=== PATIENT | female | born 1980 | race Caucasian/White ===

== ENCOUNTER 2024-08-25 09:20 | Emergency (ER) | payer OTHER ==
[2024-08-25] MEDS: SODIUM CHLORIDE 0.9% 1,000 ML IV STA (10:28)
[2024-08-25 10:37] LABS: Basophils % (A) 1 %; Eosinophils # (A) 0.1 k/uL (0-0.7); Eosinophils % (A) 2 %; HCT 37.8 % (34.0-46.0); HGB 13.1 gm/dL (11.4-16.0); Lymphocytes # (A) 1.6 k/uL (1.0-4.8); Lymphocytes % (A) 29 %; MCH 30.7 pg (25.0-35.0); MCHC 34.6 g/dL (31.0-37.0); MCV 88.8 fL (80.0-100.0); Mean Platelet Volume 6.5; Monocytes # (A) 0.5 k/uL (0-1.0); Monocytes % (A) 8 %; Neutrophils # (A) 3.2 k/uL (1.3-7.7); Neutrophils % (A) 57 %; Platelet Count 222 k/uL (150-450); RBC 4.25 m/uL (3.80-5.40); RDW 12.5 % (11.5-15.5); WBC 5.6 k/uL (3.8-10.6)
[2024-08-25 10:46] LABS: ALT 27 U/L (4-34); AST 33 U/L (14-36); African American GFR (CKD) >90 (>60 ml/min/1.73 sqM); Albumin 4.5 g/dL (3.5-5.0); Alkaline Phosphatase 66 U/L (38-126); Amylase 35 U/L (30-110); Anion Gap 7 mmol/L; Blood Urea Nitrogen 16 mg/dL (7-17); Calcium 9.6 mg/dL (8.4-10.2); Carbon Dioxide 27 mmol/L (22-30); Chloride 101 mmol/L (98-107); Glucose 87 mg/dL (74-99); Lipase 45 U/L (23-300); Non-African American GFR(CKD) >90 (>60 ml/min/1.73 sqM); Potassium 4.1 mmol/L (3.5-5.1); Sodium 135 mmol/L (137-145); Total Bilirubin 0.8 mg/dL (0.2-1.3); Total Protein 6.9 g/dL (6.3-8.2)
[2024-08-25 10:55] LABS: INR 0.9 (<1.2); Partial Thromboplastin Time 25.6 sec (22.0-30.0); Prothrombin Time 10.3 sec (10.0-12.5)
[2024-08-25 11:03] LABS: Appearance,Urine Clear (Clear); Bilirubin,Urine Negative (Negative); Blood,Urine Negative (Negative); Color,Urine Yellow; Glucose,Urine (UA) Negative (Negative); Ketones,Urine Negative (Negative); Leukocyte Esterase,Urine Trace (Negative); Mucus,Urine Occasional /hpf; Nitrite,Urine Negative (Negative); PH, Urine 5.5 (5.0-8.0); Protein,Urine Trace (Negative); RBC,Urine <1 /hpf (0-5); Specific Gravity,Urine 1.033 (1.001-1.035); Squamous Epithelial Cell,Urine 3 /hpf (0-4); Urobilinogen,Urine <2.0 mg/dL (<2.0); WBC,Urine 2 /hpf (0-5)
[2024-08-25 11:04] LABS: Amphetamine Screen,Urine Detected (NotDetected); Barbiturate Screen,Urine Not Detected (NotDetected); Benzodiazepines Screen,Urine Not Detected (NotDetected); Cocaine Screen,Urine Not Detected (NotDetected); Methadone Screen, Urine Not Detected (NotDetected); Opiate Screen,Urine Not Detected (NotDetected); Oxycodone Screen, Urine Not Detected (NotDetected); Phencyclidine Screen,Urine Not Detected (NotDetected); Tricyclic Antidepressant,Urine Detected (NotDetected); Urn Cannabinoid Scrn Detected (NotDetected)
[2024-08-25 11:36] VITALS: TEMP 97.6
--- NOTE | 2024-08-25 11:42 | ED ---
General Adult HPI - General Chief complaint: Abdominal Pain Stated complaint: Parasite Time Seen by Provider: 08/25/24 09:58 Source: patient, RN notes reviewed, old records reviewed Mode of arrival: ambulatory Limitations: no limitations - History of Present Illness Initial comments: Is a 44-year-old female presents to the emergency department for what was originally seen in triage as abdominal pain however is actually evaluation for rashes as well as possible worms. 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 Has not been on any medications. Reiterates that she sees worms crawling out of her skin, out of her fingers, she is cut into her skin and is noticed that when she Dems peroxide on it she sees white worms come out. Concern for possible eggs. Does have some bites that do appear similar to scabies which she was diagnosed with previously and ran out of her permethrin ointment. Denies any significant abdominal pain, nausea, vomiting, diarrhea. Denies any other acute complaints. Presents for reevaluation at this time.Patient states she was wiping her body off with wipes and saw the worms on the wipes and brought them in baggies to the emergency department for me to evaluate. - Related Data Home Medications Medication Instructions Recorded Confirmed Cyclobenzaprine [Flexeril] 10 mg PO TID 08/25/24 08/25/24 Gabapentin 800 mg PO TID 08/25/24 08/25/24 Nortriptyline HCl [Pamelor] 50 mg PO HS 08/25/24 08/25/24 Omeprazole 40 mg PO DAILY 08/25/24 08/25/24 Previous Rx's Medication Instructions Recorded Permethrin 1 applic TOPICAL BID #60 gm 08/25/24 Allergies Allergy/AdvReac Type Severity Reaction Status Date / Time acetaminophen [From Tylenol] AdvReac Nausea & Verified 08/25/24 10:26 Vomiting ibuprofen AdvReac Nausea & Verified 08/25/24 10:26 Vomiting Review of Systems ROS Statement: Those systems with pertinent positive or pertinent negative responses have been documented in the HPI. Review of Systems: CONST: Denies fever EYES: Denies blurry vision ENT: Denies nasal congestion C/V: Denies Chest pain RESP: Denies shortness of breath GI: Denies abdominal pain : Denies dysuria SKIN: Endorses rash MSK: Denies joint pain. NEURO: Denies headache ROS Other: All systems not noted in ROS Statement are negative. Past Medical History Past Medical History: Fibromyalgia History of Any Multi-Drug Resistant Organisms: None Reported Past Surgical History: Hysterectomy Past Psychological History: No Psychological Hx Reported Smoking Status: Current every day smoker Past Alcohol Use History: None Reported Past Drug Use History: Marijuana General Exam - General Exam Comments Initial Comments: General: Patient appears jittery, appears to likely be on methamphetamine based on her presentation and behavior. HEAD: Normal with no signs of head trauma. EYES: PERRLA, EOMI, conjunctiva normal, no discharge. ENT: Hearing grossly intact, normal oropharynx. RESPIRATORY: Clear breath sounds bilaterally. No wheezes, rales, or rhonchi. C/V: Regular rate and rhythm. S1 and S2 auscultated, no edema, peripheral pulses 2+ and intact throughout ABD: Abd is soft, nontender, nondistended EXT: Normal range of motion, no obvious deformity SKIN: Patient has healed excoriations on her extremities. No evidence of worms coming out of any wounds, skin, orifices. NEURO: Alert and oriented x 4. Limitations: no limitations Course Vital Signs 08/25/24 08/25/24 08/25/24 09:24 11:35 11:59 Temperature 98.4 F 97.6 F 97.6 F Pulse Rate 91 87 80 Respiratory 18 15 16 Rate Blood Pressure 113/65 90/64 110/65 O2 Sat by Pulse 99 99 99 Oximetry Medical Decision Making - Medical Decision Making Was pt. sent in by a medical professional or institution (, PA, TUB WASHER, urgent care, hospital, or alf...) When possible be specific @ -No Did you speak to anyone other than the patient for history (EMS, parent, family, police, friend...)? What history was obtained from this source @ -No Did you review nursing and triage notes (agree or disagree)? Why? @ -I reviewed and agree with nursing and triage notes Were old charts reviewed (outside hosp., previous admission, EMS record, old EKG, old radiological studies, urgent care reports/EKG's, alf records)? Report findings @ -No old charts were reviewed Differential Diagnosis (chest pain, altered mental status, abdominal pain women, abdominal pain men, vaginal bleeding, weakness, fever, dyspnea, syncope, headache, dizziness, GI bleed, back pain, seizure, CVA, palpatations, mental health, musculoskeletal)? @ -Scabies infection, hookworm infection, polysubstance abuse. This list is not all inclusive. EKG interpreted by me (3pts min.). @ -None done X-rays interpreted by me (1pt min.). @ -None done CT interpreted by me (1pt min.). @ -None done U/S interpreted by me (1pt. min.). @ -None done What testing was considered but not performed or refused? (CT, X-rays, U/S, labs)? Why? @ -None What meds were considered but not given or refused? Why? @ -None Did you discuss the management of the patient with other professionals (caroline coleman i.e. , PA, TUB WASHER, lab, RT, psych nurse, 7th grade social studies teacher, ash handler, teacher, community services officer, case packer)? Give summary @ -No Was smoking cessation discussed for >3mins.? @ -No Was critical care preformed (if so, how long)? @ -No Were there social determinants of health that impacted care today? How? (Homelessness, low income, unemployed, alcoholism, drug addiction, transportation, low edu. Level, literacy, decrease access to med. care, care home, rehab)? @ -No Was there de-escalation of care discussed even if they declined (Discuss DNR or withdrawal of care, Hospice)? DNR status @ -No What co-morbidities impacted this encounter? (DM, HTN, Smoking, COPD, CAD, Cancer, CVA, ARF, Chemo, Hep., AIDS, mental health diagnosis, sleep apnea, morbid obesity)? @ -None Was patient admitted / discharged? Hospital course, mention meds given and route, prescriptions, significant lab abnormalities, going to OR and other pertinent info. @ -Patient presents with what appears to be polysubstance abuse but is not a danger to herself or others. Seems to think she has a hookworm or schistosomiasis infection. Does have skin healed excoriations that could be related to scabies and she is asking for refill on her permethrin ointment. This will be provided. Did recommend basic labs to evaluate liver function. She was in agreement this plan. Vitals are within acceptable limits. I did evaluate the patient's wipes that she brought in that she claims were covered in worms however I see no evidence of any form of worms anywhere. Labs are remarkable for a normal LFTs. UDS is positive for TCAs, amphetamines, as well as marijuana. I discussed results with patient. She is resting comfortably at this time. No acute distress. I believe is safer to be discharged home. She was in agreement with this plan. I will provide the patient with a prescription for permethrin. I instructed the patient to follow up with their PCP in the next 1-3 days.. I explained that the patient should return to the emergency department if they experience any worsening symptoms. Strict return precautions were discussed with the patient. The patient expressed understanding of these instructions. I answered all questions that the patient had. The patient was discharged home in good condition with their prescriptions and follow up information. Undiagnosed new problem with uncertain prognosis? @ -No Drug Therapy requiring intensive monitoring for toxicity (Heparin, Nitro, Insulin, Cardizem)? @ -No Were any procedures done? @ -No Diagnosis/symptom? @ -Polysubstance abuse, scabies Acute, or Chronic, or Acute on Chronic? @ -Acute on chronic Uncomplicated (without systemic symptoms) or Complicated (systemic symptoms)? @ -Uncomplicated Side effects of treatment? @ -No Exacerbation, Progression, or Severe Exacerbation? @ -No Poses a threat to life or bodily function? How? (Chest pain, USA, SD, pneumonia, PE, COPD, DKA, ARF, appy, cholecystitis, CVA, Diverticulitis, Homicidal, Suicidal, threat to staff... and all critical care pts) @ -Unlikely - Lab Data Result diagrams: 08/25/24 10:22 08/25/24 10:22 Lab Results 08/25/24 08/25/24 08/25/24 Range/Units 10:22 10:22 10:22 WBC 5.6 (3.8-10.6) k/uL RBC 4.25 (3.80-5.40) m/uL Hgb 13.1 (11.4-16.0) gm/dL Hct 37.8 (34.0-46.0) % MCV 88.8 (80.0-100.0) fL MCH 30.7 (25.0-35.0) pg MCHC 34.6 (31.0-37.0) g/dL RDW 12.5 (11.5-15.5) % Plt Count 222 (150-450) k/uL MPV 6.5 Neutrophils % 57 % Lymphocytes % 29 % Monocytes % 8 % Eosinophils % 2 % Basophils % 1 % Neutrophils # 3.2 (1.3-7.7) k/uL Lymphocytes # 1.6 (1.0-4.8) k/uL Monocytes # 0.5 (0-1.0) k/uL Eosinophils # 0.1 (0-0.7) k/uL Basophils # 0.0 (0-0.2) k/uL PT 10.3 (10.0-12.5) sec INR 0.9 (<1.2) APTT 25.6 (22.0-30.0) sec Sodium (137-145) mmol/L Potassium (3.5-5.1) mmol/L Chloride (98-107) mmol/L Carbon Dioxide (22-30) mmol/L Anion Gap mmol/L BUN (7-17) mg/dL Creatinine (0.52-1.04) mg/dL Est GFR (CKD-EPI)AfAm (>60 ml/min/1.73 sqM) Est GFR (CKD-EPI)NonAf (>60 ml/min/1.73 sqM) Glucose (74-99) mg/dL Plasma Lactic Acid Nj (0.7-2.0) mmol/L Calcium (8.4-10.2) mg/dL Total Bilirubin (0.2-1.3) mg/dL AST (14-36) U/L ALT (4-34) U/L Alkaline Phosphatase (38-126) U/L Total Protein (6.3-8.2) g/dL Albumin (3.5-5.0) g/dL Amylase (30-110) U/L Lipase (23-300) U/L Urine Color Yellow Urine Appearance Clear (Clear) Urine pH 5.5 (5.0-8.0) Ur Specific [place] 1.033 (1.001-1.035) Urine Protein Trace H (Negative) Urine Glucose (UA) Negative (Negative) Urine Ketones Negative (Negative) Urine Blood Negative (Negative) Urine Nitrite Negative (Negative) Urine Bilirubin Negative (Negative) Urine Urobilinogen <2.0 (<2.0) mg/dL Ur Leukocyte Esterase Trace H (Negative) Urine RBC <1 (0-5) /hpf Urine WBC 2 (0-5) /hpf Ur Squamous Epith Cells 3 (0-4) /hpf Urine Mucus Occasional H (None) /hpf Urine Opiates Screen (NotDetected) Ur Oxycodone Screen (NotDetected) Urine Methadone Screen (NotDetected) Ur Barbiturates Screen (NotDetected) U Tricyclic Antidepress (NotDetected) Ur Phencyclidine Scrn (NotDetected) Ur Amphetamines Screen (NotDetected) U Methamphetamines Scrn (NotDetected) U Benzodiazepines Scrn (NotDetected) Urine Cocaine Screen (NotDetected) U Marijuana (THC) Screen (NotDetected) 08/25/24 08/25/24 08/25/24 Range/Units 10:22 10:22 10:22 WBC (3.8-10.6) k/uL RBC (3.80-5.40) m/uL Hgb (11.4-16.0) gm/dL Hct (34.0-46.0) % MCV (80.0-100.0) fL MCH (25.0-35.0) pg MCHC (31.0-37.0) g/dL RDW (11.5-15.5) % Plt Count (150-450) k/uL MPV Neutrophils % % Lymphocytes % % Monocytes % % Eosinophils % % Basophils % % Neutrophils # (1.3-7.7) k/uL Lymphocytes # (1.0-4.8) k/uL Monocytes # (0-1.0) k/uL Eosinophils # (0-0.7) k/uL Basophils # (0-0.2) k/uL PT (10.0-12.5) sec INR (<1.2) APTT (22.0-30.0) sec Sodium 135 L (137-145) mmol/L Potassium 4.1 (3.5-5.1) mmol/L Chloride 101 (98-107) mmol/L Carbon Dioxide 27 (22-30) mmol/L Anion Gap 7 mmol/L BUN 16 (7-17) mg/dL Creatinine 0.58 (0.52-1.04) mg/dL Est GFR (CKD-EPI)AfAm >90 (>60 ml/min/1.73 sqM) Est GFR (CKD-EPI)NonAf >90 (>60 ml/min/1.73 sqM) Glucose 87 (74-99) mg/dL Plasma Lactic Acid Nj 0.5 L (0.7-2.0) mmol/L Calcium 9.6 (8.4-10.2) mg/dL Total Bilirubin 0.8 (0.2-1.3) mg/dL AST 33 (14-36) U/L ALT 27 (4-34) U/L Alkaline Phosphatase 66 (38-126) U/L Total Protein 6.9 (6.3-8.2) g/dL Albumin 4.5 (3.5-5.0) g/dL Amylase 35 (30-110) U/L Lipase 45 (23-300) U/L Urine Color Urine Appearance (Clear) Urine pH (5.0-8.0) Ur Specific [place] (1.001-1.035) Urine Protein (Negative) Urine Glucose (UA) (Negative) Urine Ketones (Negative) Urine Blood (Negative) Urine Nitrite (Negative) Urine Bilirubin (Negative) Urine Urobilinogen (<2.0) mg/dL Ur Leukocyte Esterase (Negative) Urine RBC (0-5) /hpf Urine WBC (0-5) /hpf Ur Squamous Epith Cells (0-4) /hpf Urine Mucus (None) /hpf Urine Opiates Screen Not Detected (NotDetected) Ur Oxycodone Screen Not Detected (NotDetected) Urine Methadone Screen Not Detected (NotDetected) Ur Barbiturates Screen Not Detected (NotDetected) U Tricyclic Antidepress Detected H (NotDetected) Ur Phencyclidine Scrn Not Detected (NotDetected) Ur Amphetamines Screen Detected H (NotDetected) U Methamphetamines Scrn Detected H (NotDetected) U Benzodiazepines Scrn Not Detected (NotDetected) Urine Cocaine Screen Not Detected (NotDetected) U Marijuana (THC) Screen Detected H (NotDetected) Disposition Clinical Impression: Scabies exposure, Polysubstance abuse Disposition: HOME SELF-CARE Condition: Good Instructions (If sedation given, give patient instructions): Scabies (ED) Prescriptions: Permethrin 1 applic TOPICAL BID #60 gm Is patient prescribed a controlled substance at d/c from ED?: No Referrals: Kj Urias MD [Primary Care Provider] - 1-2 days Time of Disposition: 11:40
[2024-08-25 12:03] VITALS: BP 110/65; PULSE 80; RESP 16
== END 2024-08-25 12:03 | disposition home or self-care (01) ==
LOC: EC 09:20
CPT/HCPCS: 36415; 80053; 80306; 81001; 82150; 83605; 83690; 85025; 85610; 85730; 96360; 99284

== ENCOUNTER 2024-10-12 17:44 | Inpatient (IN) | payer MEDICAID, OTHER ==
[2024-10-12 20:16] LABS: Amphetamine Screen,Urine Not Detected (NotDetected); Barbiturate Screen,Urine Not Detected (NotDetected); Benzodiazepines Screen,Urine Not Detected (NotDetected); Cocaine Screen,Urine Not Detected (NotDetected); Methadone Screen, Urine Not Detected (NotDetected); Opiate Screen,Urine Not Detected (NotDetected); Oxycodone Screen, Urine Not Detected (NotDetected); Phencyclidine Screen,Urine Not Detected (NotDetected); Tricyclic Antidepressant,Urine Detected (NotDetected); Urn Cannabinoid Scrn Detected (NotDetected)
--- NOTE | 2024-10-12 21:35 | ED ---
General Adult HPI - General Chief complaint: Psychiatric Symptoms Stated complaint: Mental health Time Seen by Provider: 10/12/24 19:23 Source: patient, RN notes reviewed Mode of arrival: ambulatory Limitations: no limitations - History of Present Illness Initial comments: 44-year-old female presents to the emergency department for evaluation of hallucinations x 3 weeks. Patient reports that she was recently hospitalized for her mental health and was discharged home. She notes continued hallucinations and paranoia. She states that she feels the FBI is following her. She also feels that there are cameras in her home watching her. Patient appears to have good insight. Denies SI, HI. - Related Data Home Medications Medication Instructions Recorded Confirmed Cyclobenzaprine [Flexeril] 10 mg PO TID 08/25/24 08/25/24 Gabapentin 800 mg PO TID 08/25/24 08/25/24 Nortriptyline HCl [Pamelor] 50 mg PO HS 08/25/24 08/25/24 Omeprazole 40 mg PO DAILY 08/25/24 08/25/24 Previous Rx's Medication Instructions Recorded Permethrin 1 applic TOPICAL BID #60 gm 08/25/24 Allergies Allergy/AdvReac Type Severity Reaction Status Date / Time acetaminophen [From Tylenol] AdvReac Nausea & Verified 08/25/24 10:26 Vomiting ibuprofen AdvReac Nausea & Verified 08/25/24 10:26 Vomiting Review of Systems ROS Statement: Those systems with pertinent positive or pertinent negative responses have been documented in the HPI. ROS Other: All systems not noted in ROS Statement are negative. Past Medical History Past Medical History: Fibromyalgia Additional Past Medical History / Comment(s): spinal stenosis. DGD History of Any Multi-Drug Resistant Organisms: None Reported Past Surgical History: Hysterectomy Additional Past Surgical History / Comment(s): ACL, MCL, menescus repair Past Psychological History: No Psychological Hx Reported Smoking Status: Current every day smoker Past Alcohol Use History: None Reported Past Drug Use History: Marijuana General Exam Limitations: no limitations General appearance: alert, in no apparent distress Head exam: Present: atraumatic, normocephalic, normal inspection Eye exam: Present: normal appearance, PERRL, EOMI. Absent: scleral icterus, conjunctival injection, periorbital swelling ENT exam: Present: normal exam, mucous membranes moist Respiratory exam: Present: normal lung sounds bilaterally. Absent: respiratory distress, wheezes, rales, rhonchi, stridor Cardiovascular Exam: Present: regular rate, normal rhythm, normal heart sounds. Absent: systolic murmur, diastolic murmur, rubs, gallop, clicks Neurological exam: Present: alert, oriented X3, CN II-XII intact Psychiatric exam: Present: anxious Skin exam: Present: warm, dry, intact, normal color. Absent: rash Course Vital Signs 10/12/24 10/12/24 18:14 21:02 Temperature 97.7 F 98.3 F Pulse Rate 98 101 H Respiratory 18 19 Rate Blood Pressure 122/81 98/60 O2 Sat by Pulse 99 96 Oximetry Medical Decision Making - Medical Decision Making Was pt. sent in by a medical professional or institution (, PA, TUMBLERS SUPERVISOR, urgent care, hospital, or jail...) When possible be specific @ -No Did you speak to anyone other than the patient for history (EMS, parent, family, police, friend...)? What history was obtained from this source @ -No Did you review nursing and triage notes (agree or disagree)? Why? @ -I reviewed and agree with nursing and triage notes Were old charts reviewed (outside hosp., previous admission, EMS record, old EKG, old radiological studies, urgent care reports/EKG's, jail records)? Report findings @ -No old charts were reviewed Differential Diagnosis (chest pain, altered mental status, abdominal pain women, abdominal pain men, vaginal bleeding, weakness, fever, dyspnea, syncope, headache, dizziness, GI bleed, back pain, seizure, CVA, palpatations, mental health, musculoskeletal)? @ -Differential Mental Health Depression, anxiety, bipolar, psychosis, schizophrenia, borderline personality, situational depression, adjustment disorder, behavioral disorder, brain tumor, malingering, substance abuse, encephalopathy, medication reaction, dementia, hypothyroidism, degenerative neurologic disorder, lupus.... This is not meant to be all-inclusive list EKG interpreted by me (3pts min.). @ -None X-rays interpreted by me (1pt min.). @ -None done CT interpreted by me (1pt min.). @ -None done U/S interpreted by me (1pt. min.). @ -None done What testing was considered but not performed or refused? (CT, X-rays, U/S, labs)? Why? @ -None What meds were considered but not given or refused? Why? @ -None Did you discuss the management of the patient with other professionals (professionals i.e. , PA, TUMBLERS SUPERVISOR, lab, RT, psych nurse, manager social services, setter induction heating equipment, teacher, chief development officer, pillowcase folder)? Give summary @ -Management discussed with EPS, recommending inpatient treatment Was smoking cessation discussed for >3mins.? @ -No Was critical care preformed (if so, how long)? @ -No Were there social determinants of health that impacted care today? How? (Homelessness, low income, unemployed, alcoholism, drug addiction, transportation, low edu. Level, literacy, decrease access to med. care, half-way, rehab)? @ -No Was there de-escalation of care discussed even if they declined (Discuss DNR or withdrawal of care, Hospice)? DNR status @ -No What co-morbidities impacted this encounter? (DM, HTN, Smoking, COPD, CAD, Cancer, CVA, ARF, Chemo, Hep., AIDS, mental health diagnosis, sleep apnea, morbid obesity)? @ -None Was patient admitted / discharged? Hospital course, mention meds given and route, prescriptions, significant lab abnormalities, going to OR and other pertinent info. @ -Admitted. Patient presented to the emergency department for mental health evaluation. Patient reports that she has been experiencing paranoia for the past 2 to 3 weeks. Patient was medically cleared and evaluated by emergency psychiatric services. Inpatient treatment was recommended. Undiagnosed new problem with uncertain prognosis? @ -No Drug Therapy requiring intensive monitoring for toxicity (Heparin, Nitro, Insulin, Cardizem)? @ -No Were any procedures done? @ -No Diagnosis/symptom? @ -Acute psychosis Acute, or Chronic, or Acute on Chronic? @ -Acute Uncomplicated (without systemic symptoms) or Complicated (systemic symptoms)? @ -Uncomplicated Side effects of treatment? @ -No Exacerbation, Progression, or Severe Exacerbation? @ -No Poses a threat to life or bodily function? How? (Chest pain, USA, [place], pneumonia, PE, COPD, DKA, ARF, appy, cholecystitis, CVA, Diverticulitis, Homicidal, Suicidal, threat to staff... and all critical care pts) @ -No - Lab Data Lab Results 11/15/24 11/15/24 Range/Units 18:30 19:40 Urine Opiates Screen Not Detected (NotDetected) Ur Oxycodone Screen Not Detected (NotDetected) Urine Methadone Screen Not Detected (NotDetected) Ur Barbiturates Screen Not Detected (NotDetected) U Tricyclic Antidepress Detected H (NotDetected) Ur Phencyclidine Scrn Not Detected (NotDetected) Ur Amphetamines Screen Not Detected (NotDetected) U Methamphetamines Scrn Not Detected (NotDetected) U Benzodiazepines Scrn Not Detected (NotDetected) Urine Cocaine Screen Not Detected (NotDetected) U Marijuana (THC) Screen Detected H (NotDetected) SARS-CoV-2 (PCR) Not Detected (Not Detectd) Disposition Clinical Impression: Acute psychosis Disposition: ADMITTED IP TO THIS [facility] Condition: Stable Is patient prescribed a controlled substance at d/c from ED?: No Referrals: Kj Urias MD [Primary Care Provider] - 1-2 days
[2024-10-13] MEDS ORDERED: MAGNESIUM HYDROXIDE 2,400 MG/30 ML CUP PO PRN (02:06)
[2024-10-13] MEDS ORDERED: HALOPERIDOL LACTATE 5 MG/ML 1 ML VIAL IM PRN (02:06)
[2024-10-13] MEDS ORDERED: LORazepam 1 MG TAB PO PRN (02:06)
[2024-10-13] MEDS ORDERED: ACETAMINOPHEN TAB 325 MG TAB PO PRN (02:06)
[2024-10-13] MEDS ORDERED: traZODone HCL 50 MG TAB PO PRN (02:06)
[2024-10-13] MEDS ORDERED: LORazepam 2 MG/ML INJ IM PRN (02:06)
[2024-10-13] MEDS ORDERED: haloperidoL 5 MG TAB PO PRN (02:06)
[2024-10-13 03:41] LABS: Appearance,Urine Clear (Clear); Bilirubin,Urine Negative (Negative); Blood,Urine Negative (Negative); Color,Urine Light Yellow; Glucose,Urine (UA) Negative (Negative); Ketones,Urine Negative (Negative); Leukocyte Esterase,Urine Negative (Negative); Nitrite,Urine Negative (Negative); PH, Urine 5.5 (5.0-8.0); Protein,Urine Negative (Negative); Specific Gravity,Urine 1.023 (1.001-1.035); Urobilinogen,Urine <2.0 mg/dL (<2.0)
[2024-10-13 07:25] LABS: Basophils % (A) 1 %; Eosinophils # (A) 0.1 k/uL (0-0.7); Eosinophils % (A) 2 %; HCT 39.7 % (34.0-46.0); HGB 13.1 gm/dL (11.4-16.0); Lymphocytes # (A) 2.2 k/uL (1.0-4.8); Lymphocytes % (A) 40 %; MCH 30.4 pg (25.0-35.0); MCHC 33.1 g/dL (31.0-37.0); MCV 91.9 fL (80.0-100.0); Mean Platelet Volume 6.4; Monocytes # (A) 0.3 k/uL (0-1.0); Monocytes % (A) 6 %; Neutrophils # (A) 2.6 k/uL (1.3-7.7); Neutrophils % (A) 47 %; Platelet Count 250 k/uL (150-450); RBC 4.32 m/uL (3.80-5.40); RDW 12.7 % (11.5-15.5); WBC 5.4 k/uL (3.8-10.6)
[2024-10-13 07:44] LABS: ALT 21 U/L (4-34); AST 29 U/L (14-36); African American GFR (CKD) >90 (>60 ml/min/1.73 sqM); Albumin 4.2 g/dL (3.5-5.0); Alkaline Phosphatase 76 U/L (38-126); Anion Gap 4 mmol/L; Blood Urea Nitrogen 19 mg/dL (7-17); Calcium 9.4 mg/dL (8.4-10.2); Carbon Dioxide 31 mmol/L (22-30); Chloride 104 mmol/L (98-107); Glucose 100 mg/dL (74-99); Non-African American GFR(CKD) >90 (>60 ml/min/1.73 sqM); Potassium 4.5 mmol/L (3.5-5.1); Sodium 139 mmol/L (137-145); Total Bilirubin 0.3 mg/dL (0.2-1.3); Total Protein 6.5 g/dL (6.3-8.2)
[2024-10-13] MEDS: NICOTINE 14MG/24HR PATCH TRANSDERM SCH (08:02)
[2024-10-13] MEDS: PANTOPRAZOLE 40 MG TABLET PO SCH (08:02)
[2024-10-13] MEDS: CYCLOBENZAPRINE 10 MG TAB PO SCH (08:02)
--- NOTE | 2024-10-13 08:15 | P.HPIM ---
History of Present Illness This is a pleasant 44 years old female with previous multiple problems as below. She was admitted to the mental health unit for signs symptoms of psychosis. Patient herself denies any specific complaints physically. No chest pain or dyspnea or coughing. No change in urine or bowel habits. No fever or chills. No headache dizziness weakness or numbness. Patient seen walking in the hallway with Normal pace Patient states she smokes about a pack per day and she was counseled to quit and she agrees and she agrees to the nicotine patch. Also she uses marijuana. No alcohol as per patient Vitals are reviewed and they look stable and patient is afebrile Patient has unremarkable CBC, BMP and liver enzymes. Urinalysis is negative. Urine test is negative. Urine drug screen is positive for tricyclic antidepressant and marijuana COVID test is negative Review of Systems Review of systems CONSTITUTIONAL: No fever, no malaise, no fatigue. HEENT: No recent visual problems or hearing problems. Denied any sore throat. CARDIOVASCULAR: No orthopnea, PND, no palpitations, no syncope. PULMONARY: No shortness of breath, no cough, no hemoptysis. GASTROINTESTINAL: No diarrhea, no nausea, no vomiting, no abdominal pain. Normoactive bowel sounds. NEUROLOGICAL: No headaches, no weakness, no numbness. HEMATOLOGICAL: Denies any bleeding or petechiae. GENITOURINARY: Denies any burning micturition, frequency, or urgency. MUSCULOSKELETAL/RHEUMATOLOGICAL: Denies any joint pain, swelling, or any muscle pain. ENDOCRINE: Denies any polyuria or polydipsia. Past Medical History Past Medical History: Fibromyalgia Additional Past Medical History / Comment(s): spinal stenosis. DGD History of Any Multi-Drug Resistant Organisms: None Reported Past Surgical History: Hysterectomy Additional Past Surgical History / Comment(s): ACL, MCL, menescus repair right and left knee Past Psychological History: Anxiety, Bipolar, Depression, Panic Disorder, PTSD, Schizoaffective Disorder Smoking Status: Current every day smoker Past Alcohol Use History: Rare Past Drug Use History: Marijuana Medications and Allergies Home Medications Medication Instructions Recorded Confirmed Type Cyclobenzaprine [Flexeril] 10 mg PO TID 08/25/24 10/13/24 History Gabapentin 800 mg PO TID 08/25/24 10/13/24 History Nortriptyline HCl [Pamelor] 50 mg PO HS 08/25/24 10/13/24 History Omeprazole 40 mg PO DAILY 08/25/24 10/13/24 History Permethrin 1 applic TOPICAL BID #60 gm 08/25/24 10/13/24 Rx Allergies Allergy/AdvReac Type Severity Reaction Status Date / Time acetaminophen [From Tylenol] AdvReac Nausea & Verified 10/13/24 02:14 Vomiting ibuprofen AdvReac Nausea & Verified 10/13/24 02:14 Vomiting Physical Exam Vitals: Vital Signs Temp Pulse Pulse Resp BP BP Pulse Ox 10/13/24 04:53 97.1 F L 70 14 104/69 99 10/13/24 02:24 97.6 F 70 18 102/69 100 10/12/24 21:02 98.3 F 101 H 19 98/60 96 10/12/24 18:14 97.7 F 98 18 122/81 99 Intake and Output 10/12/24 10/13/24 10/13/24 22:59 06:59 14:59 Other: Weight 58.967 kg 67.358 kg GENERAL: The patient is alert and oriented x3, not in any acute distress. Well developed, well nourished. HEENT: Pupils are round and equally reacting to light. EOMI. No scleral icterus. No conjunctival pallor. Normocephalic, atraumatic. No pharyngeal erythema. No thyromegaly. CARDIOVASCULAR: S1 and S2 present. No murmurs, rubs, or gallops. PULMONARY: Chest is clear to auscultation, no wheezing , no crackles. ABDOMEN: Soft, nontender, nondistended, normoactive bowel sounds. No palpable organomegaly. MUSCULOSKELETAL: No joint swelling or deformity. EXTREMITIES: No cyanosis, clubbing, or pedal edema. NEUROLOGICAL: Gross neurological examination did not reveal any focal deficits. SKIN: No rashes. no petechiae. Results CBC & Chem 7: 10/13/24 07:12 10/13/24 07:12 Labs: Abnormal Lab Results - Last 24 Hours (Table) 10/12/24 10/13/24 Range/Units 19:40 07:12 Carbon Dioxide 31 H (22-30) mmol/L BUN 19 H (7-17) mg/dL Glucose 100 H (74-99) mg/dL U Tricyclic Antidepress Detected H (NotDetected) U Marijuana (THC) Screen Detected H (NotDetected) Thrombosis Risk Factor Assmnt - Choose All That Apply Any of the Below Risk Factors Present?: Yes Each Factor Represents 1 point: Abnormal pulmonary function (COPD), Age 41-60 years, Obesity (BMI >25) Other Risk Factors: No Other congenital or acquired thrombophilia - If yes, enter type in comment: No Thrombosis Risk Factor Assessment Total Risk Factor Score: 3 Thrombosis Risk Factor Assessment Level: Moderate Risk Assessment and Plan Assessment: - Acute psychosis, management as per psych team -Nicotine dependence. Patient was counseled to quit and she agrees to the ni cotine patch - Marijuana use disorder, patient was counseled to quit - History of fibromyalgia - History of spinal stenosis - History of schizoaffective disorder management as per psych primary team Recommend patient follow-up with PCP in 1 week after discharge Thank you for consulting us
--- NOTE | 2024-10-13 11:00 | P.HP ---
Psychiatric H&P - . History & Physical: Allergies Allergy/AdvReac Type Severity Reaction Status Date / Time acetaminophen [From Tylenol] AdvReac Nausea & Verified 10/13/24 02:14 Vomiting ibuprofen AdvReac Nausea & Verified 10/13/24 02:14 Vomiting Vital Signs Temp 97.1 F L 10/13/24 04:53 Pulse 70 10/13/24 04:53 Resp 14 10/13/24 04:53 BP 104/69 10/13/24 04:53 Pulse Ox 99 10/13/24 04:53 FiO2 Intake & Output 10/12/24 10/13/24 10/13/24 18:59 06:59 18:59 Weight 58.967 kg 67.358 kg Laboratory Last Values WBC 5.4 k/uL (3.8-10.6) 10/13/24 07:12 RBC 4.32 m/uL (3.80-5.40) 10/13/24 07:12 Hgb 13.1 gm/dL (11.4-16.0) 10/13/24 07:12 Hct 39.7 % (34.0-46.0) 10/13/24 07:12 MCV 91.9 fL (80.0-100.0) 10/13/24 07:12 MCH 30.4 pg (25.0-35.0) 10/13/24 07:12 MCHC 33.1 g/dL (31.0-37.0) 10/13/24 07:12 RDW 12.7 % (11.5-15.5) 10/13/24 07:12 Plt Count 250 k/uL (150-450) 10/13/24 07:12 MPV 6.4 10/13/24 07:12 Neutrophils % 47 % 10/13/24 07:12 Lymphocytes % 40 % 10/13/24 07:12 Monocytes % 6 % 10/13/24 07:12 Eosinophils % 2 % 10/13/24 07:12 Basophils % 1 % 10/13/24 07:12 Neutrophils # 2.6 k/uL (1.3-7.7) 10/13/24 07:12 Lymphocytes # 2.2 k/uL (1.0-4.8) 10/13/24 07:12 Monocytes # 0.3 k/uL (0-1.0) 10/13/24 07:12 Eosinophils # 0.1 k/uL (0-0.7) 10/13/24 07:12 Basophils # 0.0 k/uL (0-0.2) 10/13/24 07:12 Sodium 139 mmol/L (137-145) 10/13/24 07:12 Potassium 4.5 mmol/L (3.5-5.1) 10/13/24 07:12 Chloride 104 mmol/L (98-107) 10/13/24 07:12 Carbon Dioxide 31 mmol/L (22-30) H 10/13/24 07:12 Anion Gap 4 mmol/L 10/13/24 07:12 BUN 19 mg/dL (7-17) H 10/13/24 07:12 Creatinine 0.66 mg/dL (0.52-1.04) 10/13/24 07:12 Est GFR (CKD-EPI)AfAm >90 (>60 ml/min/1.73 sqM) 10/13/24 07:12 Est GFR (CKD-EPI)NonAf >90 (>60 ml/min/1.73 sqM) 10/13/24 07:12 Glucose 100 mg/dL (74-99) H 10/13/24 07:12 Calcium 9.4 mg/dL (8.4-10.2) 10/13/24 07:12 Total Bilirubin 0.3 mg/dL (0.2-1.3) 10/13/24 07:12 AST 29 U/L (14-36) 10/13/24 07:12 ALT 21 U/L (4-34) 10/13/24 07:12 Alkaline Phosphatase 76 U/L (38-126) 10/13/24 07:12 Total Protein 6.5 g/dL (6.3-8.2) 10/13/24 07:12 Albumin 4.2 g/dL (3.5-5.0) 10/13/24 07:12 TSH 2.030 mIU/L (0.465-4.680) 10/13/24 07:12 Urine Color Light Yellow 10/12/24 19:40 Urine Appearance Clear (Clear) 10/12/24 19:40 Urine pH 5.5 (5.0-8.0) 10/12/24 19:40 Ur Specific [place] 1.023 (1.001-1.035) 10/12/24 19:40 Urine Protein Negative (Negative) 10/12/24 19:40 Urine Glucose (UA) Negative (Negative) 10/12/24 19:40 Urine Ketones Negative (Negative) 10/12/24 19:40 Urine Blood Negative (Negative) 10/12/24 19:40 Urine Nitrite Negative (Negative) 10/12/24 19:40 Urine Bilirubin Negative (Negative) 10/12/24 19:40 Urine Urobilinogen <2.0 mg/dL (<2.0) 10/12/24 19:40 Ur Leukocyte Esterase Negative (Negative) 10/12/24 19:40 Urine HCG, Qual Not Detected (Not Detectd) 10/12/24 19:40 Urine Opiates Screen Not Detected (NotDetected) 10/12/24 19:40 Ur Oxycodone Screen Not Detected (NotDetected) 10/12/24 19:40 Urine Methadone Screen Not Detected (NotDetected) 10/12/24 19:40 Ur Barbiturates Screen Not Detected (NotDetected) 10/12/24 19:40 U Tricyclic Antidepress Detected (NotDetected) H 10/12/24 19:40 Ur Phencyclidine Scrn Not Detected (NotDetected) 10/12/24 19:40 Ur Amphetamines Screen Not Detected (NotDetected) 10/12/24 19:40 U Methamphetamines Scrn Not Detected (NotDetected) 10/12/24 19:40 U Benzodiazepines Scrn Not Detected (NotDetected) 10/12/24 19:40 Urine Cocaine Screen Not Detected (NotDetected) 10/12/24 19:40 U Marijuana (THC) Screen Detected (NotDetected) H 10/12/24 19:40 SARS-CoV-2 (PCR) Not Detected (Not Detectd) 10/12/24 18:30 10/13/24 10:51 IDENTIFYING DATA: Patient is a 44-year-old unemployed female who lives with her family HPI: states that she had been using drugs. She was using methamphetamines until August 24 and cocaine until July. Since using methamphetamines, she states that she has had paranoia and hallucinations that have not subsided. She also reports marijuana use, last use yesterday. also smokes one pack per day, no other substance use. Patient denies any suicidal or homicidal ideations intent or plan. At this time patient denies any auditory or visual hallucinations. Patient denies any flight of ideas racing thoughts and increased in goal directed behavior. PAST PSYCHIATRIC HISTORY: was recently on Abilify and trazodone after she presented to the ER with similar complaints. States that Abilify made her angry and she stopped taking it. [Patient denies any previous psychiatric hospitalizations.] [Patient denies any psychiatric outpatient follow-up.] [Patient denies any history of suicide attempts in the past.] PMH: fibromyalgia, spinal stenosis ALLERGIES: as per EMR CHEMICAL DEPENDENCY HISTORY: as per HPI FAMILY PSYCHIATRIC/SUBSTANCE USE HISTORY: Sister has bipolar and schizophrenia, son has Asperger's SOCIAL HISTORY: currently lives with family, is unemployed, no legal issues MENTAL STATUS EXAM: General Appearance: Patient appears to be older than stated age is alert, [directable, and attempts to cooperate]. Behavior: Patient is seated without any agitated behavior. [] Speech: Patient's speech is [fluent and nonpressured.] Mood/Affect: Patient reports their mood "fluctuates", affect is congruent and constricted. Suicidality/Homicidality: Patient denies having any homicidal ideation intent or plan. [Denies any suicidal ideations intent or plan] Perceptions: Patient denies any visual hallucinations [and denies any auditory hallucinations] Though content/process: [There is no evidence of any delusional thought content and thought process is linear and goal-directed.] Memory and concentration: AOX3, grossly intact for the purposes of this session. Can spell "WORLD" backwards Judgment and insight: fair STRENGTHS/WEAKNESSES: strength is that patient is [resilient]. 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 Patient was educated about this and she verbalized understanding. Psychosis unspecified substance induced psychosis Amphetamine use disorder, in early remission Cocaine use disorder, in early remission Cannabis use disorder PLAN: -Patient is admitted under [voluntary] status to MHU for stabilization of psychiatric symptoms and safety. Patient has signed adult voluntary form -Medications : Will start patient on Risperdal 1 mg twice a day -Ativan [and Haldol] PRN for agitation/aggression [-Patient was counselled on substance abuse and desired to cut back on use] -Patient was informed of the risks, benefits and side effects of the medication and patient verbally consented to taking the medications. -Internal Medicine consult to perform medical evaluation and physical. -SW on board for discharge planning. Encourage patient to participate in groups to work on coping skills. [Will await deferral and court date.] [] 10/13/24 11:00
[2024-10-13] MEDS: risperiDONE 1 MG TAB PO SCH (12:38)
[2024-10-13 13:06] LABS: Chol/HDL Ratio 3.59 Ratio; LDL Cholesterol,Calculated 140.4 mg/dL (0.0-131.0)
[2024-10-13] MEDS: GABAPENTIN 400 MG CAP PO STA (21:48)
[2024-10-14] MEDS: MAG HYDROX/AL HYDROX/SIMETH 355 ML BOTTLE PO PRN (09:58)
--- NOTE | 2024-10-14 13:01 | P.PN ---
Progress Note - Text Interval history: Patient was seen [wandering the hallways] and was directable and agreeable to speak with staff writer. denies paranoia. At this time patient denies any suicidal or homicidal ideations intent or plan. Denies any Auditory or visual hallucinations. Patient denies any side effects from the medications and has been compliant with meds. asking to be restarted on gabapentin and states that she has been on 800 mg 3 times a day for many years Mental status exam: General Appearance: [Patient appears to be stated age is alert, directable, and cooperative.] Behavior: [No agitated behavior. Patient is calm and directable] Speech: Patient's speech is fluent and nonpressured. Mood/Affect: Mood is improving mildly, affect is congruent and constricted. Suicidality/Homicidality: Patient denies having any suicidal or homicidal ideation intent or plan. Perceptions: Patient denies any auditory or visual hallucinations. Though content/process: [There is no evidence of any delusional thought content and thought process is linear and goal-directed.] Memory and concentration: AOX3, grossly intact for the purposes of this session Judgment and insight: improving mildly Assessment/Plan: Continue with current diagnosis. Patient continues to meet criteria for inpatient psychiatric admission for symptom stabilization and safety.[Patient will be maintained on current psychotropic medication regimen.] Monitor for medication compliance and for any psychotropic medication side effects. Will continue to monitor ongoing response to treatment. Encouraged participation in milieu.
[2024-10-14] MEDS: GABAPENTIN 400 MG CAP PO SCH (13:15)
[2024-10-15 07:11] VITALS: RESP 16; TEMP 97.6
--- NOTE | 2024-10-15 12:45 | P.PN ---
Progress Note - Text Progress Note Date: 10/15/24 Interval History: Patient was seen wandering the hallways and was directable and agreeable to berenice avila with newspaper writer in the office. She states feeling well today. She states having a history of methamphetamine use however last used August 22 however she is still experiencing some lingering effects of this drug. She states her father a little over a week ago and she began experiencing paranoia with auditory hallucinations. She is able to now identify reality from fiction however was having a difficult time with this prior to being treated. She talked about previously experiencing a parasitic infection related to her dog drinking from a contaminated pond. She states she received treatment for roundworm however had to get rid of the dog because of this. She states having her 2 kids to live for. She is agreeable with going to [facility] upon discharge. At this time patient denies any suicidal or homicidal ideations, intent or plan. Patient denies any auditory, visual hallucinations and denies any paranoia or delusions. Patient denies any side effects from the medications and has been compliant with meds. Mental Status Exam: General Appearance: Patient appears to be stated age is alert, directable, and cooperative. Behavior: Patient is calmly seated without any agitated behavior. Speech: Patient's speech is fluent and talkative but interruptible. Mood/Affect: Mood is improving mildly, affect is congruent and blunted. Suicidality/Homicidality: Patient denies having any suicidal or homicidal ideation intent or plan. Perceptions: Patient denies any visual hallucinations and denies any auditory hallucinations Though content/process: There is no evidence of any delusional thought content and thought process is linear and goal-directed. Memory and concentration: AOX3, grossly intact for the purposes of this session Judgment and insight: Improving mildly Assessment Psychosis unspecified, likely substance-induced Stimulant use disorder, in early remission Cannabis use disorder Nicotine dependence Plan: -Patient continues to meet criteria for inpatient psychiatric admission for symptom stabilization and safety. Patient has signed adult voluntary form and medication consent and was placed in patient's chart. -Medications: Continue Risperdal 1 mg twice daily for psychosis -When necessary Ativan and Haldol for agitation/aggression. -Labs: Reviewed -NRT -nicotine patch -SW on board for discharge planning. Encouraged the patient to participate in milieu. Anticipate discharge to [facility] on Tuesday
--- NOTE | 2024-10-16 10:36 | P.PN ---
Progress Note - Text Progress Note Date: 10/16/24 Interval History: Patient was seen in group and was directable and agreeable to speak with movie writer in the office. She reports feeling very anxious today, rating this 6 or 7 out of 10 in severity. Patient notably is very restless, fidgeting about in her chair. Patient otherwise reports she has been progressing in mood. She no longer is interested in going to [facility] and wishes to return home with her family instead. She is motivated to maintain her sobriety as she has not used in several weeks. She reports some issues with an intrusive peer on the unit however she has been able to maintain her distance from this individual. At this time patient denies any suicidal or homicidal ideations, intent or plan. Patient denies any auditory, visual hallucinations and denies any paranoia or delusions. Patient has been compliant with meds. Mental Status Exam: General Appearance: Patient appears to be stated age is alert, directable, and cooperative. Behavior: Patient is calmly seated without any agitated behavior. Speech: Patient's speech is fluent and talkative, nonpressured. Mood/Affect: Mood is improving mildly, affect is congruent and blunted. Suicidality/Homicidality: Patient denies having any suicidal or homicidal ideation intent or plan. Perceptions: Patient denies any visual hallucinations and denies any auditory hallucinations Though content/process: There is no evidence of any delusional thought content and thought process is linear and goal-directed. Memory and concentration: AOX3, grossly intact for the purposes of this session Judgment and insight: Improving mildly Assessment Psychosis unspecified, likely substance-induced Stimulant use disorder, in early remission Cannabis use disorder Nicotine dependence Plan: -Patient continues to meet criteria for inpatient psychiatric admission for symptom stabilization and safety. Patient has signed adult voluntary form and medication consent and was placed in patient's chart. -Medications: Decrease Risperdal to 1 mg daily and 0.5 mg at bedtime for psychosis given adverse effects and start Cogentin 0.5 mg twice daily for EPS -When necessary Ativan and Haldol for agitation/aggression. -Labs: Reviewed -NRT -nicotine patch -SW on board for discharge planning. Encouraged the patient to participate in milieu. Anticipate discharge home with family tomorrow
[2024-10-16] MEDS: BENZTROPINE MESYLATE 0.5 MG TAB PO SCH (13:34)
[2024-10-16] MEDS: risperiDONE 0.5 MG TAB PO SCH (21:14)
[2024-10-17 07:08] VITALS: BP 110/75; PULSE 69
[2024-10-17] MEDS: risperiDONE 1 MG TAB PO SCH (08:33)
--- NOTE | 2024-10-17 12:38 | P.DS ---
Providers Date of admission: 10/13/24 01:40 Expected date of discharge: 10/17/24 Attending physician: Floridalma Vela MD Consults: 10/13/24 02:06 Consult Physician Routine Consulting Provider: Jesus Manuel Shearer Consult Reason/Comments: For H & P for Medical Follow Up Do you want consulting provider notified?: Yes, Notify in am Primary care physician: Kj Urias - Discharge Diagnosis(es) (1) Unspecified psychosis Current Visit: Yes Status: Acute Priority: High (2) Stimulant use disorder Current Visit: Yes Status: Chronic Priority: Low (3) Cannabis use disorder Current Visit: Yes Status: Chronic Priority: Low (4) Nicotine dependence Current Visit: Yes Status: Chronic Priority: Low Hospital Course: Admission HPI: Admission note was completed by Dr. Benjamin "states that she had been using drugs. She was using methamphetamines until August 24 and cocaine until July. Since using methamphetamines, she states that she has had paranoia and hallucinations that have not subsided. She also reports marijuana use, last use yesterday. also smokes one pack per day, no other substance use. Patient denies any suicidal or homicidal ideations intent or plan. At this time patient denies any auditory or visual hallucinations. Patient denies any flight of ideas racing thoughts and increased in goal directed behavior. " Hospital course: Upon admission to the unit patient was directable and agreeable to commence treatment and signed adult voluntary form.. Patient got along well with other patients on the unit and followed unit protocol. Patient was compliant with the medications and denied any side effects throughout hospital course. Patient was started on Risperdal 1 mg twice daily for psychosis however given akathisia and this was decreased to 1 mg daily and 0.5 mg at bedtime and patient was started on Cogentin 0.5 mg twice daily with significant improvement in akathisia. Patient spoke of her stressors and engaged in therapy both group and individual. Patient was also seen by medical team for history and physical exam. Throughout the course of the hospitalization patient gradually improved with regards to mood, anxiety, sleep and became more future oriented with improved insight and judgment. On the day of discharge patient denied any suicidal or homicidal ideations intent or plan denied any auditory or visual hallucinations. The patient denied any access to guns or weapons. Patient denied any paranoia and did not endorse any delusions. Patient does have a significant history of substance abuse and was counseled on abstaining from all substances including alcohol and marijuana. Patient reports she has been sober from meth since August 24 and appears to be in the maintenance stage of her sobriety. He was initially agreeable to going to a sober living facility however later declined and wished to be discharged home with family. Patient was also counseled on the medications and need for regular compliance and was encouraged to follow-up with their outpatient appointment for mental health and also for primary care. Prior to discharge a family meeting will be arranged by social service assistant to answer any questions and ensure safety upon discharge incuding making sure that guns/weapons are either removed from the home or locked away. Patient to be discharged home with family with [facility] follow-up in [place]. Mental status exam: General Appearance: Patient appears to be stated age is alert, pleasant, and cooperative. Patient is in no acute distress and has improved hygiene and grooming Behavior: Patient is calmly seated without any agitated behavior. Speech: Patient's speech is fluent and nonpressured. Mood/Affect: Patient reports their mood is "good", affect is congruent and euthymic. Suicidality/Homicidality: Patient denies having any suicidal or homicidal ideation intent or plan. Perceptions: Patient denies any auditory or visual hallucinations. Though content/process: There is no evidence of any delusional thought content and thought process is linear and goal-directed. Memory and concentration: AOX3, grossly intact for the purposes of this session. Can spell "WORLD" backwards correctly. Judgment and insight: Fair Impression: Psychosis, unspecified, likely substance-induced Stimulant use disorder, in early remission Cannabis use disorder Nicotine dependence Plan: -Continue with discharge today as patient has improved and stabilized psychiatrically and is not currently an imminent threat to themself and/or others. -Continue medications: Risperdal 1.5 mg daily and Cogentin 0.5 mg twice daily -Patient was counseled on the need for medication compliance and appropriate follow-up at mental health and also primary care for medical issues. Patient verbalized understanding and agreed. -Social work to help coordinate patients discharge today. also to ensure safe home environment that guns/weapons are either removed from the home or locked away. Social work also to arrange for patients follow up appointments with [facility] for psychiatric care along with follow up with primary care provider. -Patient counseled on abstaining from recreational drugs and marijuana and alcohol. Was informed/educated on the adverse effects on their physical and mental health. Patient verbally agreed and understood. -Patient was instructed to return to the hospital or seek immediate medical care if their psychiatric or medical symptoms do worsen or reoccur. Abnormal Labs 10/12/24 10/13/24 19:40 07:12 Carbon Dioxide 31 H BUN 19 H Glucose 100 H Triglycerides 200.00 H Cholesterol 250.00 H LDL Cholesterol, Calc 140.4 H HDL Cholesterol 69.60 H U Tricyclic Antidepress Detected H U Marijuana (THC) Screen Detected H Vital Signs Temp 97.6 F 10/15/24 07:10 Pulse 69 10/17/24 07:08 Resp 16 10/15/24 07:10 BP 110/75 10/17/24 07:08 Pulse Ox 99 10/15/24 07:10 FiO2 Allergies Allergy/AdvReac Type Severity Reaction Status Date / Time acetaminophen [From Tylenol] AdvReac Nausea & Verified 10/13/24 02:14 Vomiting ibuprofen AdvReac Nausea & Verified 10/13/24 02:14 Vomiting Patient Condition at Discharge: Stable Plan - Discharge Summary Discharge Rx Participant: Yes New Discharge Prescriptions: New Nicotine 14Mg/24Hr Patch [Habitrol] 1 patch TRANSDERM DAILY 30 Days #30 patch Pantoprazole [Protonix] 40 mg PO DAILY@0730 30 Days #30 tab Benztropine Mesylate [Cogentin] 0.5 mg PO BID 30 Days #60 tab Gabapentin [Neurontin] 800 mg PO TID cap risperiDONE [RisperDAL] 1.5 mg PO DAILY 30 Days #90 tab Continue Cyclobenzaprine [Flexeril] 10 mg PO TID Gabapentin 800 mg PO TID Discontinued Omeprazole 40 mg PO DAILY Nortriptyline HCl [Pamelor] 50 mg PO HS Permethrin 1 applic TOPICAL BID #60 gm Discharge Medication List Cyclobenzaprine [Flexeril] 10 mg PO TID 08/25/24 [History] Gabapentin 800 mg PO TID 08/25/24 [History] Benztropine Mesylate [Cogentin] 0.5 mg PO BID 30 Days #60 tab 10/17/24 [Rx] Gabapentin [Neurontin] 800 mg PO TID cap 10/17/24 [Rx] Nicotine 14Mg/24Hr Patch [Habitrol] 1 patch TRANSDERM DAILY 30 Days #30 patch 10/17/24 [Rx] Pantoprazole [Protonix] 40 mg PO DAILY@0730 30 Days #30 tab 10/17/24 [Rx] risperiDONE [RisperDAL] 1.5 mg PO DAILY 30 Days #90 tab 10/17/24 [Rx] Follow up Appointment(s)/Referral(s): [facility] [Outside] - 10/18/24 3:00 pm (intake is at: [address] [place] [address] with Rebeka) Kj Urias MD [Primary Care Provider] - 1-2 days Patient Instructions/Handouts: How to Stop Smoking (DC), Psychotic Disorder (DC) Activity/Diet/Wound Care/Special Instructions: Avoid the use of street drugs and alcohol. Take all medications as prescribed. When you are in need of refills on your medications, please contact your medical provider and/or outpatient psychiatrist/provider to have this done. Please go to your scheduled outpatient appointment for aftercare treatment. If symptoms return or become worse, call the crisis line at and/or go to the nearest emergency room for evaluation. National Suicide Hotline 988 Discharge Disposition: HOME SELF-CARE
--- NOTE | 2024-10-17 16:10 | P.PN ---
Progress Note - Text Progress Note Date: 10/17/24 This is a pleasant 44 years old female with previous multiple problems as below. She was admitted to the mental health unit for signs symptoms of psychosis. Patient herself denies any specific complaints physically. No chest pain or dyspnea or coughing. No change in urine or bowel habits. No fever or chills. No headache dizziness weakness or numbness. Patient seen walking in the hallway with Normal pace Patient states she smokes about a pack per day and she was counseled to quit and she agrees and she agrees to the nicotine patch. Also she uses marijuana. No alcohol as per patient Vitals are reviewed and they look stable and patient is afebrile Patient has unremarkable CBC, BMP and liver enzymes. Urinalysis is negative. Urine test is negative. Urine drug screen is positive for tricyclic antidepressant and marijuana COVID test is negative October 17, 2024: Patient getting discharged today. Counseled about smoking. Also gets reflux symptoms as needed. Though better. Told to use Pepcid. Patient to follow-up with her family doctor. Patient does use an albuterol inhaler as needed. On examination: VITAL SIGNS: [69, 16, 110 x 75] GENERAL APPEARANCE: Cooperative chair, comfortable. HEENT: Normal external appearance of nose and ear. Oral cavity normal EYES: Pupils equal. Conjunctiva normal. NECK: JVD not raised. Mass not palpable. RESPIRATORY: Respiratory effort normal. Decreased breath sound CARDIOVASCULAR: First and second sounds normal. No edema. ABDOMEN: Soft. Liver and spleen not palpable. No tenderness. No mass palpable. PSYCHIATRY: Alert and oriented x3. Mood and affect normal. Past Medical History Past Medical History: Fibromyalgia Additional Past Medical History / Comment(s): spinal stenosis. DGD History of Any Multi-Drug Resistant Organisms: None Reported Past Surgical History: Hysterectomy Additional Past Surgical History / Comment(s): ACL, MCL, menescus repair right and left knee Past Psychological History: Anxiety, Bipolar, Depression, Panic Disorder, PTSD, Schizoaffective Disorder Smoking Status: Current every day smoker Past Alcohol Use History: Rare Past Drug Use History: Marijuana Assessment and plan: - Acute psychosis, management as per psych team -Nicotine dependence. Patient counseled today. Nicotine patch. - Marijuana use disorder, patient was counseled to quit -fibromyalgia Neurontin -GERD Pepcid as needed, follow-up PCP - spinal stenosis Neurontin - History of schizoaffective disorder management as per psych primary team Patient to follow-up with PCP upon discharge. Thank you
== END 2024-10-17 13:25 | disposition home or self-care (01) | DRG 774 ==
LOC: EC 17:44 → 3MHU 10-13 01:40
PROVIDERS: ADMIT Psychiatry & Neurology Psychiatry; ATTEND Psychiatry & Neurology Psychiatry
DX: F15.159 Other stimulant abuse with stimulant-induced psychotic disorder, unspecified (principal); F12.10 Cannabis abuse, uncomplicated; F17.210 Nicotine dependence, cigarettes, uncomplicated; G25.71 Drug induced akathisia; F15.11 Other stimulant abuse, in remission; M79.7 Fibromyalgia; F43.10 Post-traumatic stress disorder, unspecified; F41.0 Panic disorder [episodic paroxysmal anxiety]; F25.9 Schizoaffective disorder, unspecified; F31.9 Bipolar disorder, unspecified; K21.9 Gastro-esophageal reflux disease without esophagitis; M48.00 Spinal stenosis, site unspecified; F14.11 Cocaine abuse, in remission; Z88.6 Allergy status to analgesic agent; Z63.4 Disappearance and death of family member; Z79.899 Other long term (current) drug therapy; Z90.710 Acquired absence of both cervix and uterus
CPT/HCPCS: 80053; 80061; 80306; 81003; 81025; 82075; 83036; 84443; 85025; 87635; 99285